=== PATIENT | male | born 1995 | race Caucasian/White ===

== ENCOUNTER 2019-11-03 22:17 | Emergency (ER) | payer SELFPAY ==
[~2019-11-03] VITALS: Ht 175.3 cm; Wt 84.1 kg
[2019-11-03 22:24] VITALS: BP 139/91; Ht 175.3 cm; Wt 84.1 kg
[2019-11-03] MEDS ORDERED: IBUPROFEN800 MG PO (22:58)
== END 2019-11-03 23:16 | disposition home or self-care (01) ==
LOC: D.ER 22:17
DX: S90.31XA Contusion of right foot, initial encounter (principal); S99.921A Unspecified injury of right foot, initial encounter; W16.92XA Jumping or diving into unspecified water causing other injury, initial encounter; Y93.9 Activity, unspecified; Y92.9 Unspecified place or not applicable